=== PATIENT | female | born 1990 | race Caucasian/White ===

== ENCOUNTER 2018-01-23 13:53 | Inpatient (IN) | payer MEDICAID, OTHER ==
--- OUTSIDE RECORDS SUMMARY | 2018-01-23 14:15 | XMS REPORT | Continuity of Care Document ---
:1990 External Reference #:[id number] Author Name Laurie Pham Care Team Providers Name Role Phone Care Connections Primary Care Physician Unavailable Payers Type Date Identification Numbers Payment Provider Subscriber Policy Number: [id number] Medicaid Mal Garrison Group Name: 1 1 [address] PayID: [id number] [place] [address] Policy Number: [id number] [employer] Mal Garrison PayID: [id number] [address] [place] [address] Policy Number: [id number] Aime Garrison PayID: [id number] [address] [place] [address] Advance Directives Description No Information Available Problems Date Description Provider Status Onset: 12/28/2017 Abdominal pain Jose Kelly MD Active Onset: 12/28/2017 Left lower quadrant pain Jose Kelly MD Active Onset: 12/28/2017 Irritable bowel syndrome with diarrhea Jose Kelly MD Active Family History Description No Information Available Social History Type Date Description Comments Sex Unknown Tobacco Use Start: Unknown Light tobacco smoker (10 or fewer cigarettes/day) Smoking Status Reviewed: 12/28/17 Light tobacco smoker (10 or fewer cigarettes/day) Allergies, Adverse Reactions, Alerts Date Description Reaction Status Severity Comments 12/28/2017 Zoloft Active 12/28/2017 Latex Hives, Itching Active Moderate 12/28/2017 Banana, [place], [place], [place], Active Kiwi, [place] 12/28/2017 Kiwi, [place] Active Medications Medication Date Status Form Strength Qnty SIG Indications Ordering Provider Flomax 12/28 Active Capsules 0.4mg 30cap 1 by mouth R10.30 s every day MD Robin Prochlorperazine Active Tablets 5mg 1 by mouth Unknown Maleate /0000 three times a day as needed Hyoscyamine Active Tablets 0.125mg one by Unknown Sulfate /0000 mouth every 4 hours as needed for intestinal cramping Ibuprofen Active Tablets 400mg by mouth Unknown /0000 every 4 to 6 hours as needed Immunizations Description No Information Available Vital Signs Date Vital Result Comment 12/28/2017 9:16am Height 67 inches 5'7" Weight 340.00 lb Heart Rate 76 /min BP Systolic 118 mmHg BP Diastolic 74 mmHg Respiratory Rate 16 /min Body Temperature 98.0 F Pain Level 4 abd O2 % BldC Oximetry 98 % BMI (Body Mass Index) 53.2 kg/m2 Results Description No Information Available Procedures Date Code Description Status 06/12/2013 24083 EKG, Interpretation Only Completed Encounters Description No Information Available Plan of Treatment Future Appointment(s):01/30/2018 2:00 pm - Jose Kelly MD at [facility]12/28/2017 - Jose Kelly MDK58.0 Irritable bowel syndrome with diarrheaComments:Please call GI to schedule EGD/colonoscopyContinue hyoscyamine and ghixrzvcyxhoqamvW01.32 Left lower quadrant painComments:[facility] with [facility] for [facility]necological exam.R10.30 Lower abdominal pain, unspecifiedNew Medication:Flomax 0.4 mg - 1 by mouth every day
[2018-01-23] MEDS ORDERED: Nicotine Inhaler* 10 MG AMP INH PRN ×2 (14:17→23:57)
--- NOTE | 2018-01-23 14:52 | ED ---
Psychiatric Complaint - HPI Summary HPI Summary: This pt is a 27 y/o female, accompanied by her father, presenting to [facility] for increased depression and feeling "numb." Pt reports she has hx of depression, anxiety, PTSD. Pt saw her therapist today and told her she was not feeling well and "kind of blah" for about 1 month now. Pt states she wants to stay in bed and sleep all day. She is not finding edna in her hobbies. Additionally pt has not been sleeping well, has not slept in 3 days. Pt has been eating and drinking well. Denies any recent stressors for her symptoms. Denies SI or HI thoughts/plan. Pt notes abdominal cramping for about 2 months now that feel like "guts are knotted up" and now has moved to the left side and to her back. She was in the ED for this and had a CT done that showed arthritis. Pt is scheduled to have a colonoscopy and endoscopy. Denies alcohol and drug use. LMP: has IUD. - History Of Current Complaint Chief Complaint: EDMentalHealth Time Seen by Provider: 01/23/18 14:15 Hx Obtained From: Patient Onset/Duration: Lasting Days, Still Present Timing: Days Severity Currently: Moderate Character: Depressed Aggravating Factor(s): Nothing Alleviating Factor(s): Nothing Associated Signs And Symptoms: Positive: Sleep Disturbance Related History: Positive For: Prior Psychiatric Issues Has Suicidal: Denies: Thoughts, With A Plan Has Homicidal: Denies: Thoughts, With A Plan - Allergies/Home Medications Allergies/Adverse Reactions: Allergies Allergy/AdvReac Type Severity Reaction Status Date / Time MS Gluten Meal [Gluten Meal] Allergy Unknown Verified 07/18/15 13:41 Reaction Details MS Latex [Latex] Allergy Itching Verified 07/18/15 13:41 peanuts Allergy scratchy Uncoded 07/18/15 13:41 throat Home Medications: Home Medications Hyoscyamine TAB* [Anaspaz 0.125 MG TAB*] 0.125 mg PO Q4HR PRN 01/23/18 [History Confirmed 01/23/18] Ibuprofen TAB* [Motrin TAB* 400 MG] 400 mg PO .Q4-6H PRN 01/23/18 [History Confirmed 01/23/18] Prochlorperazine TAB* [Compazine Tab*] 5 mg PO TID PRN 01/23/18 [History Confirmed 01/23/18] PMH/Surg Hx/FS Hx/Imm Hx Endocrine/Hematology History: Denies: Hx Anticoagulant Therapy, Hx Diabetes, Hx Thyroid Disease Cardiovascular History: Denies: Hx Congestive Heart Failure, Hx Hypertension, Hx Pacemaker/ICD Respiratory History: Denies: Hx Asthma, Hx Chronic Obstructive Pulmonary Disease (COPD) History: Denies: Hx Renal Disease Sensory History: Reports: Hx Contacts or Glasses Opthamlomology History: Reports: Hx Contacts or Glasses Neurological History: Reports: Hx Migraine Denies: Hx Dementia, Hx Seizures Psychiatric History: Reports: Hx Anxiety, Hx Depression, Hx Post Traumatic Stress Disorder Denies: Hx Substance Abuse - Immunization History Date of Tetanus Vaccine: UTD Infectious Disease History: No Infectious Disease History: Denies: Hx Hepatitis, Hx Human Immunodeficiency Virus (HIV), Traveled Outside the [place] in Last 30 Days - Family History Family History: Mother with hx of colon CA - Social History Alcohol Use: None Substance Use Type: Reports: None Smoking Status (MU): Former Smoker Review of Systems Constitutional: Other - POSITIVE: sleep disturbance Negative: Fever, Chills Negative: Erythema Negative: Sore Throat Negative: Chest Pain Negative: Shortness Of Breath, Cough Negative: Abdominal Pain, Vomiting, Nausea Negative: dysuria, hematuria Negative: Myalgia, Edema Negative: Rash Neurological: Other - NEGATIVE: dizziness Psychological: Other - POSITIVE: feeling numb Positive: Depressed. Negative: Other - SI or HI All Other Systems Reviewed And Are Negative: Yes Physical Exam - Summary Physical Exam Summary: Constitutional: Well-developed, Well-nourished, Alert. (-) Distressed Skin: Warm, Dry HENT: Normocephalic; Atraumatic Eyes: Conjunctiva normal Neck: Musculoskeletal ROM normal neck. (-) JVD, (-) Stridor, (-) Tracheal deviation Cardio: Rhythm regular, rate normal, Heart sounds normal; Intact distal pulses; The pedal pulses are 2+ and symmetric. Radial pulses are 2+ and symmetric. (-) Murmur Pulmonary/Chest wall: Effort normal. (-) Respiratory distress, (-) Wheezes, (-) Rales Abd: Soft, (-) Tenderness, (-) Distension, (-) Guarding, (-) Rebound Musculoskeletal: (-) Edema Lymph: (-) Cervical adenopathy Neuro: Alert, Oriented x3 Psych: Mood and affect Normal Triage Information Reviewed: Yes Vital Signs On Initial Exam: Initial Vitals Temp Pulse Resp BP Pulse Ox 97.5 F 91 20 134/76 96 01/23/18 14:04 01/23/18 14:04 01/23/18 14:04 01/23/18 14:04 01/23/18 14:04 Vital Signs Reviewed: Yes Diagnostics - Vital Signs Vital Signs Temp Pulse Resp BP Pulse Ox 01/23/18 14:04 97.5 F 91 20 134/76 96 - Laboratory Result Diagrams: 01/23/18 14:46 01/23/18 14:46 Lab Statement: Any lab studies that have been ordered have been reviewed, and results considered in the medical decision making process. Re-Evaluation - Re-Evaluation First Eval Re-Evaluation Time: 15:12 Comment: Pt is medically cleared. Course/Dx - Course Assessment/Plan: Pt is a 27 y/o female who presents to the ED for increased depression and feeling "numb." Pt reports she has hx of depression, anxiety, PTSD. Pt saw her therapist today and told her she was not feeling well and " kind of blah" for about 1 month now. Pt states she wants to stay in bed and sleep all day. She is not finding edna in her hobbies. Additionally pt has not been sleeping well, has not slept in 3 days. Pt has been eating and drinking well. Denies any recent stressors for her symptoms. Denies SI or HI thoughts/ plan. Pt is medically cleared at 15:12. In the ED course the pt was given nicotine and nicotine inhaler. Pt is waiting for a mental health evaluation. MHE is still pending at this time. Pt will be signed out to Dr. Olivo, pending disposition, awaiting MHE. - Differential Dx/Clinical Impression Provider Diagnosis: Depression Discharge - Sign-Out/Discharge Documenting (check all that apply): Sign-Out Patient Signing out patient TO: Matt Olivo - pending MHE and dispo - Discharge Plan Condition: Stable Referrals: No Primary Care Phys,NOPCP [Primary Care Provider] - - Attestation Statements Document Initiated by Scribe: Yes Documenting Scribe: Corina Ba Provider For Whom Scribe is Documenting (Include Credential): Darion Farah MD Scribe Attestation: Corina Moya, scribed for Darion Farah MD on 01/23/18 at 1823. Status of Scribe Document: Ready
[2018-01-23 14:58] LABS: ABS Basophils 0.1 10^3/ul (0-0.2); ABS Eosinophils 0.1 10^3/ul (0-0.6); ABS Lymphocytes 2.5 10^3/ul (1.0-4.8); ABS Monocytes 0.6 10^3/ul (0-0.8); ABS Neutrophils 6.7 10^3/ul (1.5-7.7); ABS Nucleated RBC 0 10^3/ul; Eosinophil % 0.6 %; Hematocrit 42 % (35-47); Hemoglobin 14.3 g/dl (12.0-16.0); Lymphocyte % 25.2 %; Mean Corpuscular HGB Conc 34 g/dl (31-36); Mean Corpuscular Hemoglobin 30 pg (27-31); Mean Corpuscular Volume 87 fL (80-97); Mean Platelet Volume 6.9 fL (7.4-10.4); Nucleated Red Blood Cells % 0.1; Platelet Count 328 10^3/ul (150-450); Red Blood Count 4.82 10^6/ul (4.00-5.40); Red Cell Distribution Width 14 % (10.5-15); White Blood Count 9.9 10^3/ul (3.5-10.8)
[2018-01-23] MEDS ORDERED: Mouth Piece, Nicotine* 1 EACH CARTRIDGE INH ONE (15:00)
[2018-01-23 15:38] LABS: EGFR Non-African American 93.4 (>60)
[2018-01-23 15:59] LABS: Urine Appearance Cloudy; Urine Blood Negative (Negative); Urine Color Yellow; Urine Ketones Negative (Negative); Urine Protein Negative (Negative); Urine Red Blood Cell Absent (Absent); Urine Specific Gravity 1.018 (1.010-1.030); Urine Urobilinogen Negative (Negative); Urine White Blood Cell Trace(0-5/hpf) (Absent)
--- NOTE | 2018-01-23 19:50 | ED ---
Progress - Progress Note Progress Note: 1939 - Pt will be admitted to [facility] by Dr. Fernandez with a diagnosis of depression. Re-Evaluation - Re-Evaluation First Eval Re-Evaluation Time: 15:12 Comment: Pt is medically cleared. Course/Dx - Diagnoses Provider Diagnoses: Depression Discharge - Sign-Out/Discharge Documenting (check all that apply): Patient Departure - admit - Discharge Plan Condition: Stable Disposition: ADMITTED TO [facility] Referrals: No Primary Care Phys,NOPCP [Primary Care Provider] - - Billing Disposition and Condition Condition: STABLE Disposition: Admitted to [facility] - Attestation Statements Document Initiated by Scribe: Yes Documenting Scribe: Chapis Avila Provider For Whom Pablo is Documenting (Include Credential): Matt Olivo MD. Scribe Attestation: Chapis Moya, vinitaed for Matt Olivo MD. on 01/23/18 at 1953. Scribe Documentation Reviewed: Yes Provider Attestation: The documentation as recorded by the Chapis cramer accurately reflects the service I personally performed and the decisions made by Nesha oneil MD. Status of Scribe Document: Viewed
[2018-01-23] MEDS ORDERED: Mouth Piece, Nicotine* 1 EACH CARTRIDGE INH SCH (23:57)
[2018-01-23] MEDS ORDERED: Acetaminophen TAB* 325 MG PO PRN (23:57)
[2018-01-23] MEDS ORDERED: Al Hydrox/Mg Hydrox/Simet LIQ* 30 ML UDC PO PRN (23:57)
[2018-01-24] MEDS ORDERED: Mouth Piece, Nicotine* 1 EACH CARTRIDGE ONE (08:49)
[2018-01-24] MEDS: Vitamin THERAPEUTIC TAB PO SCH (08:49)
--- NOTE | 2018-01-24 13:33 | HP ---
H&P (Free Text) History and Physical: JUSTIFICATION FOR ADMISSION: Patient presented to emergency room with suicidal ideation and plan, worsening depression and irritability. She requires inpatient psychiatric admission in order to provide treatment and stabilization as she is a danger to herself. CHIEF COMPLAINT: "I have not been feeling good and was having suicidal thoughts with multiple random plans HISTORY OF THE PRESENT ILLNESS: Patient is a 27 y/o female, single, living with roommates, employed at [employer] , with history of Depressive disorder. Patient was admitted to inpatient unit for worsening of depression, anhedonia, not eating and not sleeping, lost about 20-30 lbs in less than a month unintentionally, overwhelmed with psychosocial stress including , work, relationship, limited support, memories of mother that passed from colon cancer three years ago, breakup beginning of this year. Patient was having suicidal thoughts and multiple random plans but thinking about family, her cat. Patient has been non-compliant with her treatment for some and reportedly in the past followed up at [facility] and was taking Effexor. Patient reports that 75 mg PO QAM was working fine for her until it was increased which she did not like and s topped all at once. Patient reports no manic symptoms of other than irritability and days of decrease need for sleep. Patient reports no psychotic symptoms of delusion but random hallucination of her name being called. Patient continues to have passive suicidal ideation but no homicidal ideation on the unit. Patient continued to exhibit behavior that is in control and safe on all checks and acceptive of treatment. PAST PSYCHIATRIC HISTORY: Patient has history of no inpatient psychiatric hospitalization. Patient has history of outpatient psychiatric treatment for her depression at [facility] both for therapy and medication management but recently went non-compliant with medications. Patients medications trial included Prozac, Effexor and two other antidepressant but reports doing better on Effexor XR 75 mg PO QAM until it was increased to 150 mg which was ineffective and patient stopped it altogether. Patient has been followed up by ACT team in the past. Patient has been in inpatient or outpatient drug treatment. Patient has history of suicidal thoughts and plans beginning at age 15 after an argument with her mother, second was around age 21 another was round 24 when mother was diagnosed with colon cancer and now but never attempted or acted through with these plans. Patient has history of no homicidal threats, intent or attempt. Patient has history of agitated behavior when decompensates and destroyed ornaments recently. No access to firearm reported. SUBSTANCE ABUSE HISTORY: Patient denied any substance or alcohol abuse. PAST MEDICAL HISTORY: No active medical problems ALLERGIES: gluten, latex, peanuts FAMILY PSYCHIATRIC HISTORY: Patient has family history of bipolar disorder in her mother. Patient has history of alcohol abuse in family and her grandfather from alcoholism. No reported suicide in the family. FAMILY/PSYCHOSOCIAL HISTORY: Patient currently lives with roommates. Patient is not and last romantic relationship ended in February of this year. Patient endorsed that she also thought of not attempting suicide because that could be a win for my ex- boyfriend. Patient has no children. Patient education level is GED. Patient attended school till eight grade but left school due to bullying and felt that teacher were not supportive as well. Patient ended up getting home schooled till 10th grade and then patient just completed GED. Patient was raised by her mother and step father. Patient biological father left when patient was very young following divorce. Patient reported having erratic relationship with her throughout until she 3 years ago. Patient find that day to be very depressing to this day. Patient support system includes her step father, her few siblings that she is closed to. REVIEW OF SYSTEMS: Patients review of symptoms was negative for any physical complaint. Vitals stable, Labs reviewed lipid profile suggestive of increased LDL 110 and low HDL 37. Patients ED physical exam was reviewed which is grossly normal with no active medical problem. Physical Exam Summary: Constitutional: Well-developed, Well-nourished, Alert. (-) Distressed Skin: Warm, Dry HENT: Normocephalic; Atraumatic Eyes: Conjunctiva normal Neck: Musculoskeletal ROM normal neck. (-) JVD, (-) Stridor, (-) Tracheal deviation Cardio: Rhythm regular, rate normal, Heart sounds normal; Intact distal pulses; The pedal pulses are 2+ and symmetric. Radial pulses are 2+ and symmetric. (-) Murmur Pulmonary/Chest wall: Effort normal. (-) Respiratory distress, (-) Wheezes, (-) Rales Abd: Soft, (-) Tenderness, (-) Distension, (-) Guarding, (-) Rebound Musculoskeletal: (-) Edema Lymph: (-) Cervical adenopathy Neuro: Alert, Oriented x3 Psych: Mood and affect Normal MENTAL STATUS EXAMINATION: Appearance: Patient appear stated, age, overweight, making poor and intermittent short eye contact, casually dressed, very short hair, wearing spectacles. Behavior: cooperative Gait: normal Abnormal motor activity: none Speech: normal tone and volume, normal rate and rhythm Mood:depressed Affect: depressed, crying spells through out interview Thought process: coherent Thought Content: Suicidal/Homicidal ideation: passive si, no intent or plan Delusions: none Obsessions: none Phobia: none Perceptual disturbance: none Attention: fair Orientation: fair Concentration: fair Memory: fair Insight: fair Judgment: fair Impulse control: fair IMPRESSION: Patient with history of Major Depression and suicidal thoughts and plan. Patient currently admitted due to worsening of depression and suicidal thoughts with multiple random plans in context of overwhelming psychosocial stressor. Patient has also struggled with compliance and went off her antidepressant few months ago. Patient is a danger to self if discharged hence will be stabilized on inpatient unit with medication adjustments and therapy. DIAGNOSIS: Major Depressive Disorder Prov: Bipolar Disorder unspecified PLAN: Admit to U on Q 15 min observation. Patient is full code. Patient is on voluntary admission status Integrate patient into the milieu Social work consult for therapy and discharge planning Will hold family meeting with parents to increase Data base, if possible. Patient gave informed consent to start the following medications: Patient was started on Effexor XR 37.5 mg POQAM with plan to increase to 75 mg POQAM. Patient was started on Benadryl PRN for anxiety and sleep disturbance. Will continue to monitor and f/u for improvement and side effects. Piyush Blake MD Attending Psychiatrist
[2018-01-24] MEDS: Venlafaxine EXT RELEASE CAP* 37.5 MG PO SCH (16:23)
[2018-01-24] MEDS: Nicotine GUM* 2 MG PO PRN (18:35)
[2018-01-24] MEDS ORDERED: Ondansetron ODT TAB* 4 MG ONE (23:44)
[2018-01-24] MEDS: Ondansetron TAB* 4 MG PO PRN (23:45)
[2018-01-25] MEDS: Vitamin THERAPEUTIC TAB PO SCH (08:05)
[2018-01-25] MEDS: Venlafaxine EXT RELEASE CAP* 37.5 MG PO SCH (08:06)
[2018-01-25] MEDS: Ondansetron TAB* 4 MG PO PRN ×3 (11:06→23:50)
--- NOTE | 2018-01-25 15:09 | PN ---
Subjective - Subjective Date of Service: 01/25/18 Service Type: 59195 Hosp care 15 min low complexity Subjective: Patient was seen by self, discussed with treatment team, chart was reviewed. Patient has been compliant with her medications, reported nausea as a side effects. Patient reports continued depression and suicidal ideation with isolation and secretiveness in her symptoms. Patient was more out of his room. Patient sleeping has been disturbed last night with early insomnia. Patient eating has been fair. Patient has been cooperative with staff but is showing limited involvement in groups. Patient behavior has been in control and is safe on all checks. Patient mood was dysphoric and worries about her current psychosocial stresses. Patient has been reporting no homicidal ideation. No psychotic symptoms of delusions or hallucinations. Objective - Appearance Appearance: Obese Dysmorphic Features: No Hygiene: Normal Grooming: Fairly Well Kept - Behavior Psychomotor Activities: Normal Exhibits Abnormal Movement: No - Attitude and Relatedness Attitude and Relatedness: Cooperative Eye Contact: Fair - Speech Quality: Unpressured Latencies: Normal Quantity: Appropriate - Mood Patient's Decription of Mood: "Sad" - Affect Observed Affect: Depressed Affect Consistent with: Dysphoria - Thought Process Patient's Thought Process: Coherent Thought Content: Yes Passive Wish, No Suicidal Planning, No Homicidal Ideation, No Paranoid Ideation - Sensorium Experiencing Hallucinations: No, Sensorium is Clear Type of Hallucinations: Visual: No, Auditory: No, Command: No - Level of Consciousness Level of Consciousness: Alert Orientation: Yes Intact, Yes Orientated to Time, Yes Orientated to Place, Yes Orientated to Person - Impulse Control Impulse Control: Intact - Insight and Judgement Insight and Judgement: Fair - Group Participation Particating in Group Activities: Yes - Medication Management Medication Management Adherence: Yes Assessment - Assessment Merits Inpatient Hospitalization: For Immediate Safety, For Stabilization, For Discharge Planning Inpatient DSM-V Dx: F33.9 Clinical Impression: Patient with history of Major Depression and suicidal thoughts and plan. Patient currently admitted due to worsening of depression and suicidal thoughts with multiple random plans in context of overwhelming psychosocial stressor. Patient has also struggled with compliance and went off her antidepressant few months ago. Patient is a danger to self if discharged hence will be stabilized on inpatient unit with medication adjustments and therapy. MHU: Problem List - Patient Problems (1) Major depressive disorder Current Visit: Yes Status: Acute Code(s): F32.9 - MAJOR DEPRESSIVE DISORDER , SINGLE EPISODE, UNSPECIFIED SNOMED Code(s): 132395317 Plan - Plan Treatment Plan: Name: BRADLY RAMOS Birthdate: 1990 [id number] - Patient continues to be hospitalized due to recent suicidal thoughts with plan , depression and anxiety. - Patient's medications were conitnued with Effexor XR 75 mg PO QAM and Benadryl as needed for anxiety. - Patient will be monitored for improvement and side effects. Risk and benefits were discussed. - Patient was encouraged to continue his participation in the milieu, group and individual therapy. Medications: Current Medications Acetaminophen (Tylenol Tab*) 650 mg PO Q4H PRN PRN Reason: PAIN or TEMP > 101 F Al Hydrox/Mg Hydrox/Simethicone (Maalox Plus*) 30 ml PO Q4H PRN PRN Reason: INDIGESTION Device (Nicotine Mouth Piece*) 1 each INH .CARTRIDGE JANE Diphenhydramine HCl (Benadryl Po*) 50 mg PO Q6H PRN PRN Reason: ANXIETY Multivitamins (Theragran Tab*) 1 tab PO DAILY JANE Last Admin: 01/25/18 08:05 Dose: 1 tab Nicotine (Nicotine Inhaler*) 10 mg INH Q2H PRN PRN Reason: CRAVING Last Admin: 01/24/18 08:50 Dose: 10 mg Nicotine Polacrilex (Nicotine Gum*) 2 mg PO Q2H PRN PRN Reason: CRAVING Last Admin: 01/24/18 18:35 Dose: 2 mg Ondansetron HCl (Zofran Tab*) 2 mg PO Q4H PRN PRN Reason: NAUSEA Last Admin: 01/25/18 11:06 Dose: 2 mg Venlafaxine HCl (Effexor Xr Cap*) 75 mg PO DAILY [facility]
[2018-01-26] MEDS: diPHENhydraMINE PO* 50 MG PO PRN (00:20)
[2018-01-26] MEDS: Vitamin THERAPEUTIC TAB PO SCH (11:22)
[2018-01-26] MEDS: Venlafaxine EXT RELEASE CAP* 75 MG PO SCH (11:22)
--- NOTE | 2018-01-26 12:22 | PN ---
Subjective - Subjective Date of Service: 01/26/18 Service Type: [id number] Hosp care 15 min low complexity Subjective: Patient was seen by self, discussed with treatment team, chart was reviewed. Patient has been compliant with her medications, reported continued nausea as a side effects and using Zofran. Patient also reported feeling body aches and back ache and requesting Ibuprofen as it helps vs Tylenol. Patient reports continued depression and passive suicidal ideation, less crying spell, coming out of her room more than before. Patient sleeping has been better last night with Benadryl. Patient eating has been fair. Patient has been cooperative with staff but is showing limited involvement in groups but was encouraged to attend more. Patient stepfather came to see patient on the unit and he is reportedly a therapist and [facility].Patient behavior has been in control and is safe on all checks. Patient mood was dysphoric and continues to worry about her current psychosocial stresses. Patient has been reporting no homicidal ideation. No psychotic symptoms of delusions or hallucinations. Objective - Appearance Appearance: Obese Dysmorphic Features: No Hygiene: Normal Grooming: Fairly Well Kept - Behavior Psychomotor Activities: Normal Exhibits Abnormal Movement: No - Attitude and Relatedness Attitude and Relatedness: Cooperative Eye Contact: Poor - Speech Quality: Unpressured Latencies: Normal Quantity: Appropriate - Mood Patient's Decription of Mood: "Sad" - Affect Observed Affect: Depressed Affect Consistent with: Dysphoria - Thought Process Patient's Thought Process: Coherent Thought Content: Yes Passive Wish, No Suicidal Planning, No Homicidal Ideation, No Paranoid Ideation - Sensorium Experiencing Hallucinations: No, Sensorium is Clear Type of Hallucinations: Visual: No, Auditory: No, Command: No - Level of Consciousness Level of Consciousness: Alert Orientation: Yes Intact, Yes Orientated to Time, Yes Orientated to Place, Yes Orientated to Person - Impulse Control Impulse Control: Intact - Insight and Judgement Insight and Judgement: Fair - Group Participation Particating in Group Activities: Yes - Medication Management Medication Management Adherence: Yes Assessment - Assessment Merits Inpatient Hospitalization: For Immediate Safety, For Stabilization, For Discharge Planning Inpatient DSM-V Dx: F33.9 Clinical Impression: Patient with history of Major Depression and suicidal thoughts and plan. Patient currently admitted due to worsening of depression and suicidal thoughts with multiple random plans in context of overwhelming psychosocial stressor. Patient has also struggled with compliance and went off her antidepressant few months ago. Patient is a danger to self if discharged hence will be stabilized on inpatient unit with medication adjustments and therapy. MHU: Problem List - Patient Problems (1) Major depressive disorder Current Visit: Yes Status: Acute Code(s): F32.9 - MAJOR DEPRESSIVE DISORDER , SINGLE EPISODE, UNSPECIFIED SNOMED Code(s): 157053922 Plan - Plan Treatment Plan: Name: BRADLY RAMOS Birthdate: 1990 [id number] - Patient continues to be hospitalized due to recent suicidal thoughts with plan , depression and anxiety. - Patient's medications were continued with Effexor XR 37.5 mg PO QAM and Benadryl as needed for anxiety/sleep. Patient also consuming Zofran for nausea but no reported vomiting episodes. - Patient will be monitored for improvement and side effects. Risk and benefits were discussed. - Patient was encouraged to continue his participation in the milieu, group and individual therapy. Medications: Current Medications Acetaminophen (Tylenol Tab*) 650 mg PO Q4H PRN PRN Reason: PAIN or TEMP > 101 F Last Admin: 01/25/18 19:59 Dose: 650 mg Al Hydrox/Mg Hydrox/Simethicone (Maalox Plus*) 30 ml PO Q4H PRN PRN Reason: INDIGESTION Device (Nicotine Mouth Piece*) 1 each INH .CARTRIDGE JANE Diphenhydramine HCl (Benadryl Po*) 50 mg PO Q6H PRN PRN Reason: ANXIETY Last Admin: 01/26/18 00:20 Dose: 50 mg Multivitamins (Theragran Tab*) 1 tab PO DAILY [facility] Last Admin: 01/26/18 11:22 Dose: 1 tab Nicotine (Nicotine Inhaler*) 10 mg INH Q2H PRN PRN Reason: CRAVING Last Admin: 01/24/18 08:50 Dose: 10 mg Nicotine Polacrilex (Nicotine Gum*) 2 mg PO Q2H PRN PRN Reason: CRAVING Last Admin: 01/24/18 18:35 Dose: 2 mg Ondansetron HCl (Zofran Tab*) 2 mg PO Q4H PRN PRN Reason: NAUSEA Last Admin: 01/25/18 23:50 Dose: 2 mg Venlafaxine HCl (Effexor Xr Cap*) 75 mg PO DAILY [facility] Last Admin: 01/26/18 11:22 Dose: 75 mg
[2018-01-26] MEDS: Ibuprofen TAB* 600 MG PO PRN (13:46)
[2018-01-27] MEDS: diPHENhydraMINE PO* 50 MG PO PRN ×2 (00:02→22:34)
[2018-01-27] MEDS: Vitamin THERAPEUTIC TAB PO SCH (08:16)
[2018-01-27] MEDS: Venlafaxine EXT RELEASE CAP* 75 MG PO SCH (08:16)
[2018-01-27] MEDS: Ondansetron TAB* 4 MG PO PRN (20:20)
[2018-01-28] MEDS: Venlafaxine EXT RELEASE CAP* 75 MG PO SCH (11:28)
[2018-01-28] MEDS: Vitamin THERAPEUTIC TAB PO SCH (11:29)
--- NOTE | 2018-01-28 13:47 | PN ---
Subjective - Subjective Date of Service: 01/28/18 Service Type: [id number] Hosp care 15 min low complexity Subjective: Mal is seen in weekend coverage for Dr. Blake. She is bitterly complaining of dyspepsia and "mental fuzziness" from venlafaxine and claims that her stomach feels like "somebody is punching me in the guts." She denies active SI but does endorse feeling "apathetic" about life, "like I wouldn't mind it if a bus ran me over." Her affective brightens noticeably when she talks about her [employer] T-shirt. Objective - Appearance Appearance: Obese Dysmorphic Features: No Hygiene: Normal Grooming: Well Kept - Behavior Psychomotor Activities: Normal Exhibits Abnormal Movement: No - Attitude and Relatedness Attitude and Relatedness: Appropriate Eye Contact: Good - Speech Quality: Unpressured Latencies: Normal Quantity: Appropriate - Mood Patient's Decription of Mood: "Sad" - Affect Observed Affect: Fair Affect Consistent with: Euthymia - Thought Process Patient's Thought Process: Coherent Thought Content: Yes Passive Wish, No Suicidal Planning, No Homicidal Ideation, No Paranoid Ideation - Sensorium Experiencing Hallucinations: No, Sensorium is Clear Type of Hallucinations: Visual: No, Auditory: No, Command: No - Level of Consciousness Level of Consciousness: Alert Orientation: Yes Intact, Yes Orientated to Time, Yes Orientated to Place, Yes Orientated to Person - Impulse Control Impulse Control: Tenuous - Insight and Judgement Insight and Judgement: Fair - Group Participation Particating in Group Activities: Yes - Medication Management Medication Management Adherence: Yes Assessment - Assessment Merits Inpatient Hospitalization: For Immediate Safety, For Stabilization Inpatient DSM-V Dx: F33.9 Clinical Impression: Patient with history of Major Depression and suicidal thoughts and plan. Patient currently admitted due to worsening of depression and suicidal thoughts with multiple random plans in context of overwhelming psychosocial stressor. Patient has also struggled with compliance and went off her antidepressant few months ago. Patient is a danger to self if discharged hence will be stabilized on inpatient unit with medication adjustments and therapy. Plan - Plan Treatment Plan: Name: MAL RAMOS Birthdate: 1990 [id number] - Patient continues to be hospitalized due to recent suicidal thoughts with plan , depression and anxiety. - Patient's medications were continued with Effexor XR 37.5 mg PO QAM and Benadryl as needed for anxiety/sleep. Patient also consuming Zofran for nausea but no reported vomiting episodes. - Patient will be monitored for improvement and side effects. Risk and benefits were discussed. - Patient was encouraged to continue his participation in the milieu, group and individual therapy. Continued Medication Management: Start Medication Medications: Current Medications Al Hydrox/Mg Hydrox/Simethicone (Maalox Plus*) 30 ml PO Q4H PRN PRN Reason: INDIGESTION Device (Nicotine Mouth Piece*) 1 each INH .CARTRIDGE JANE Diphenhydramine HCl (Benadryl Po*) 50 mg PO Q6H PRN PRN Reason: ANXIETY Last Admin: 01/27/18 22:34 Dose: 50 mg Ibuprofen (Motrin Tab*) 600 mg PO Q6H PRN PRN Reason: PAIN Last Admin: 01/26/18 13:46 Dose: 600 mg Multivitamins (Theragran Tab*) 1 tab PO DAILY [facility] Last Admin: 01/28/18 11:29 Dose: 1 tab Nicotine (Nicotine Inhaler*) 10 mg INH Q2H PRN PRN Reason: CRAVING Last Admin: 01/24/18 08:50 Dose: 10 mg Nicotine Polacrilex (Nicotine Gum*) 2 mg PO Q2H PRN PRN Reason: CRAVING Last Admin: 01/24/18 18:35 Dose: 2 mg Ondansetron HCl (Zofran Tab*) 2 mg PO Q4H PRN PRN Reason: NAUSEA Last Admin: 01/27/18 20:20 Dose: 2 mg Venlafaxine HCl (Effexor Xr Cap*) 75 mg PO DAILY [facility] Last Admin: 01/28/18 11:28 Dose: 75 mg - Discharge Plan Discharge Plan: Inpatient Hospitalization
[2018-01-28] MEDS: Ibuprofen TAB* 600 MG PO PRN (20:36)
[2018-01-29 09:02] VITALS: BP 144/83
[2018-01-29] MEDS: Vitamin THERAPEUTIC TAB PO SCH (09:18)
[2018-01-29] MEDS: Venlafaxine EXT RELEASE CAP* 75 MG PO SCH ×2 (09:18→12:28)
[2018-01-29] MEDS: Nicotine GUM* 2 MG PO PRN (10:45)
[2018-01-29] MEDS: Ibuprofen TAB* 600 MG PO PRN (10:45)
--- NOTE | 2018-01-29 14:37 | PN ---
Subjective - Subjective Date of Service: 01/29/18 Service Type: 30197 Hosp care 25 min moderate complexity Subjective: Patient was seen by self, discussed with treatment team, chart was reviewed. Patient was hesitant about taking Effexor XR but was again educated about GI side effects and reported no vomiting and improvement in symptoms today and after education took her Effexor dose. Patient reports improvement in depression and no suicidal ideation, no crying spell, coming out of her room more than before and attending groups. Patient sleeping has been fair. Patient eating has been fair. Patient reports that she has a GI appointment at the hospital tomorrow afternoon. Patient has been cooperative with staff and following redirections. Patient was upset at her stepfather yesterday as she told other family members about her hospitalization. But later patient recuperated was able to process her thinking positively and accepted his effort to help her. Patient mood was better and less worry about her work and wants to work with social work professor to help with housing and financial situation with food stamp. Patient has been reporting no homicidal ideation. No psychotic symptoms of delusions or hallucinations. Patient also reported worry about ovarian cyst and was given findings of recent CT scan done a month ago which was suggestive of normal ovary. Objective - Appearance Appearance: Obese Dysmorphic Features: No Hygiene: Normal Grooming: Fairly Well Kept - Behavior Psychomotor Activities: Normal Exhibits Abnormal Movement: No - Attitude and Relatedness Attitude and Relatedness: Cooperative Eye Contact: Fair - Speech Quality: Unpressured Latencies: Normal Quantity: Appropriate - Mood Patient's Decription of Mood: "Fine" - Affect Observed Affect: Fair Affect Consistent with: Dysphoria - less - Thought Process Patient's Thought Process: Coherent Thought Content: No Passive Wish, No Suicidal Planning, No Homicidal Ideation, No Paranoid Ideation - Sensorium Experiencing Hallucinations: No, Sensorium is Clear Type of Hallucinations: Visual: No, Auditory: No, Command: No - Level of Consciousness Level of Consciousness: Alert Orientation: Yes Intact, Yes Orientated to Time, Yes Orientated to Place, Yes Orientated to Person - Impulse Control Impulse Control: Intact - Insight and Judgement Insight and Judgement: Fair - Group Participation Particating in Group Activities: Yes - Medication Management Medication Management Adherence: Yes Assessment - Assessment Merits Inpatient Hospitalization: For Immediate Safety, For Stabilization, For Discharge Planning Inpatient DSM-V Dx: F33.9 Clinical Impression: Patient with history of Major Depression and suicidal thoughts and plan. Patient currently admitted due to worsening of depression and suicidal thoughts with multiple random plans in context of overwhelming psychosocial stressor. Patient has also struggled with compliance and went off her antidepressant few months ago. Patient is a danger to self if discharged hence will be stabilized on inpatient unit with medication adjustments and therapy. MHU: Problem List - Patient Problems (1) Major depressive disorder Current Visit: Yes Status: Acute Code(s): F32.9 - MAJOR DEPRESSIVE DISORDER , SINGLE EPISODE, UNSPECIFIED SNOMED Code(s): 622248005 Plan - Plan Treatment Plan: Name: BRADLY RAMOS Birthdate: 1990 [id number] - Patient continues to be hospitalized due to recent suicidal thoughts with plan , depression and anxiety. - Patient's medications were continued with Effexor XR 75 mg PO QAM and Benadryl as needed for anxiety/sleep. Patient to consume Zofran for nausea but no reported vomiting episodes. - Patient will be monitored for improvement and side effects. Risk and benefits were discussed. - Patient was encouraged to continue his participation in the milieu, group and individual therapy. Medications: Current Medications Al Hydrox/Mg Hydrox/Simethicone (Maalox Plus*) 30 ml PO Q4H PRN PRN Reason: INDIGESTION Device (Nicotine Mouth Piece*) 1 each INH .CARTRIDGE JANE Diphenhydramine HCl (Benadryl Po*) 50 mg PO Q6H PRN PRN Reason: ANXIETY Last Admin: 01/27/18 22:34 Dose: 50 mg Ibuprofen (Motrin Tab*) 600 mg PO Q6H PRN PRN Reason: PAIN Last Admin: 01/29/18 10:45 Dose: 600 mg Multivitamins (Theragran Tab*) 1 tab PO DAILY [facility] Last Admin: 01/29/18 09:18 Dose: 1 tab Nicotine (Nicotine Inhaler*) 10 mg INH Q2H PRN PRN Reason: CRAVING Last Admin: 01/24/18 08:50 Dose: 10 mg Nicotine Polacrilex (Nicotine Gum*) 2 mg PO Q2H PRN PRN Reason: CRAVING Last Admin: 01/29/18 10:45 Dose: 2 mg Ondansetron HCl (Zofran Tab*) 2 mg PO Q4H PRN PRN Reason: NAUSEA Last Admin: 01/27/18 20:20 Dose: 2 mg Venlafaxine HCl (Effexor Xr Cap*) 75 mg PO DAILY [facility]
[2018-01-29] MEDS ORDERED: Venlafaxine EXT RELEASE CAP* 75 MG PO SCH (15:00)
[2018-01-29] MEDS: diPHENhydraMINE PO* 50 MG PO PRN (21:47)
[2018-01-30] MEDS: Vitamin THERAPEUTIC TAB PO SCH (08:36)
[2018-01-30] MEDS ORDERED: Venlafaxine EXT RELEASE CAP* 75 MG PO SCH (09:00)
[2018-01-30] MEDS: Ibuprofen TAB* 600 MG PO PRN (12:24)
--- NOTE | 2018-01-30 13:23 | DS ---
Subjective - Subjective Service Types: [id number] [facility] over 30 min Discharge Date: 01/30/18 Subjective: JUSTIFICATION FOR ADMISSION: Patient presented to emergency room with suicidal ideation and plan, worsening depression and irritability. She requires inpatient psychiatric admission in order to provide treatment and stabilization as she is a danger to herself. CHIEF COMPLAINT: "I have not been feeling good and was having suicidal thoughts with multiple random plans HISTORY OF THE PRESENT ILLNESS: Patient is a 27 y/o female, single, living with roommates, employed at [employer] , with history of Depressive disorder. Patient was admitted to inpatient unit for worsening of depression, anhedonia, not eating and not sleeping, lost about 20-30 lbs in less than a month unintentionally, overwhelmed with psychosocial stress including , work, relationship, limited support, memories of mother that passed from colon cancer three years ago, breakup beginning of this year. Patient was having suicidal thoughts and multiple random plans but thinking about family, her cat. Patient has been non-compliant with her treatment for some and reportedly in the past followed up at [facility] and was taking Effexor. Patient reports that 75 mg PO QAM was working fine for her until it was increased which she did not like and s topped all at once. Patient reports no manic symptoms of other than irritability and days of decrease need for sleep. Patient reports no psychotic symptoms of delusion but random hallucination of her name being called. Patient continues to have passive suicidal ideation but no homicidal ideation on the unit. Patient continued to exhibit behavior that is in control and safe on all checks and acceptive of treatment. PAST PSYCHIATRIC HISTORY: Patient has history of no inpatient psychiatric hospitalization. Patient has history of outpatient psychiatric treatment for her depression at [facility] both for therapy and medication management but recently went non-compliant with medications. Patients medications trial included Prozac, Effexor and two other antidepressant but reports doing better on Effexor XR 75 mg PO QAM until it was increased to 150 mg which was ineffective and patient stopped it altogether. Patient has been followed up by ACT team in the past. Patient has been in inpatient or outpatient drug treatment. Patient has history of suicidal thoughts and plans beginning at age 15 after an argument with her mother, second was around age 21 another was round 24 when mother was diagnosed with colon cancer and now but never attempted or acted through with these plans. Patient has history of no homicidal threats, intent or attempt. Patient has history of agitated behavior when decompensates and destroyed ornaments recently. No access to firearm reported. SUBSTANCE ABUSE HISTORY: Patient denied any substance or alcohol abuse. PAST MEDICAL HISTORY: No active medical problems ALLERGIES: gluten, latex, peanuts FAMILY PSYCHIATRIC HISTORY: Patient has family history of bipolar disorder in her mother. Patient has history of alcohol abuse in family and her grandfather from alcoholism. No reported suicide in the family. FAMILY/PSYCHOSOCIAL HISTORY: Patient currently lives with roommates. Patient is not and last romantic relationship ended in February of this year. Patient endorsed that she also thought of not attempting suicide because that could be a win for my ex- boyfriend. Patient has no children. Patient education level is GED. Patient attended school till eight grade but left school due to bullying and felt that teacher were not supportive as well. Patient ended up getting home schooled till 10th grade and then patient just completed GED. Patient was raised by her mother and step father. Patient biological father left when patient was very young following divorce. Patient reported having erratic relationship with her throughout until she 3 years ago. Patient find that day to be very depressing to this day. Patient support system includes her step father, her few siblings that she is closed to. REVIEW OF SYSTEMS: Patients review of symptoms was negative for any physical complaint. Vitals stable, Labs reviewed lipid profile suggestive of increased LDL 110 and low HDL 37. Patients ED physical exam was reviewed which is grossly normal with no active medical problem. Physical Exam Summary: Constitutional: Well-developed, Well-nourished, Alert. (-) Distressed Skin: Warm, Dry HENT: Normocephalic; Atraumatic Eyes: Conjunctiva normal Neck: Musculoskeletal ROM normal neck. (-) JVD, (-) Stridor, (-) Tracheal deviation Cardio: Rhythm regular, rate normal, Heart sounds normal; Intact distal pulses; The pedal pulses are 2+ and symmetric. Radial pulses are 2+ and symmetric. (-) Murmur Pulmonary/Chest wall: Effort normal. (-) Respiratory distress, (-) Wheezes, (-) Rales Abd: Soft, (-) Tenderness, (-) Distension, (-) Guarding, (-) Rebound Musculoskeletal: (-) Edema Lymph: (-) Cervical adenopathy Neuro: Alert, Oriented x3 Psych: Mood and affect Normal MENTAL STATUS EXAMINATION ON ADMISSION: Appearance: Patient appear stated, age, overweight, making poor and intermittent short eye contact, casually dressed, very short hair, wearing spectacles. Behavior: cooperative Gait: normal Abnormal motor activity: none Speech: normal tone and volume, normal rate and rhythm Mood:depressed Affect: depressed, crying spells through out interview Thought process: coherent Thought Content: Suicidal/Homicidal ideation: passive si, no intent or plan Delusions: none Obsessions: none Phobia: none Perceptual disturbance: none Attention: fair Orientation: fair Concentration: fair Memory: fair Insight: fair Judgment: fair Impulse control: fair DIAGNOSIS ON ADMISSION: Major Depressive Disorder Prov: Bipolar Disorder unspecified DIAGNOSIS ON DISCHARGE: Major Depressive Disorder Objective - Appearance Appearance: Healthy Appearing, Obese Dysmorphic Features: Yes Hygiene: Normal Grooming: Fairly Well Kept - Behavior Psychomotor Activities: Normal Exhibits Abnormal Movement: Yes - Attitude and Relatedness Attitude and Relatedness: Cooperative Eye Contact: Fair - Speech Quality: Unpressured Latencies: Normal Quantity: Appropriate - Mood Patient's Decription of Mood: "Good" - Affect Observed Affect: Fair - Thought Process Patient's Thought Process: Coherent Thought Content: No Passive Wish, No Suicidal Planning, No Homicidal Ideation, No Paranoid Ideation - Sensorium Experiencing Hallucinations: No, Sensorium is Clear Type of Hallucinations: Visual: No, Auditory: No, Command: No - Level of Consciousness Orientation: Yes Intact, Yes Orientated to Time, Yes Orientated to Place, Yes Orientated to Person - Impulse Control Impulse Control: Intact - Insight and Judgement Insight and Judgement: Fair - Group Participation Particating in Group Activities: Yes - Medication Management Medication Management Adherence: Yes Treatment Course & Assessment Clinical Course & Impression: Patient is 27 y/o female with history of Major Depression and suicidal thoughts and plan. Patient currently admitted due to worsening of depression and suicidal thoughts with multiple random plans in context of overwhelming psychosocial stressor. Patient has also struggled with compliance and went off her antidepressant few months ago. Patient was a danger to self if discharged hence will be stabilized on inpatient unit with medication adjustments and therapy. Patient was admitted to [facility] on Q 15 min observation. Patient is full code. Patient is on voluntary admission status. Integrated patient into the milieu Social work consult for therapy and discharge planning. Patient gave informed consent to start Effexor XR 37.5 mg POQAM with plan to increase to 75 mg POQAM. Patient was started on Benadryl PRN for anxiety and sleep disturbance. Will continue to monitor and follow up for improvement and side effects. Patient during initial days of hospitalization was compliant with her medications, reported nausea as a side effects. Patient reports continued depression and suicidal ideation with isolation and secludedness in her symptoms. Patient was cooperative with staff but is showing limited involvement in groups. Patient behavior was in control and safe on all checks. Patient mood was dysphoric and worried about her current psychosocial stresses. was Patient also reported feeling body aches and back ache and requesting Ibuprofen as it helps vs Tylenol. Patient later reported continued depression and passive suicidal ideation, less crying spell, coming out of her room more than before. Patient sleeping has been better last night with Benadryl. Patient was showing limited involvement in groups due to her depression and was encouraged to attend more groups. Patient stepfather came to see patient on the unit and he is reportedly a therapist and [facility]. Patient's medications were increased to Effexor XR 75 mg PO QAM and Benadryl as needed for anxiety/sleep. Patient wasalso consuming Zofran for nausea but no reported vomiting episodes. Patient was bitterly complaining of dyspepsia and "mental fuzziness" from venlafaxine and claims that her stomach feels like "somebody is punching me in the guts." Patient denied active SI but does endorse feeling "apathetic" about life, "like I wouldn't mind it if a bus ran me over." Patient was hesitant about taking Effexor XR but was again educated about GI side effects and as patient reported no vomiting and gradual mprovement in symptoms. Patient reported improvement in depression and no suicidal ideation, no crying spell, was coming out of her room more and attending groups. . Patient reports that she had a GI appointment at the hospital and was planned to go for appointment upon discharge. Patient was cooperative with staff and following redirections. Patient was upset at her stepfather as he told other family members about her hospitalization. But later patient recuperated and was able to process her thinking positively and accepted his effort to help her depression. Patient mood was better and worked with addiction social worker to help with housing and financial situation with food stamp. Patient was reporting no suicidal or homicidal ideation. No psychotic symptoms of delusions or hallucinations. Patient also reported worry about ovarian cyst and was given findings of recent CT scan done a month ago which was suggestive of normal ovaries and that took out her major part of anxiety. Patient's medications were continued with Effexor XR 75 mg PO QAM and Benadryl as needed for anxiety/sleep. Patient did not require Zofran and was not reporting any nausea on the day of discharge. As patient was doing well, was not a danger to self and others and caring for self. Mood and behavior were in good control. Patient was discharged with plan to follow up outpatient treatment for therapy and medications. Merits Inpatient Hospitalization: No Clear for Discharge: Adequate Clinical Respons, Acceptable Safety Profile, Low Utility of Inpt Care Inpatient DSM-V Dx: F33.9 Discharge Planning - Discharge Planning Discharge Plan: Outpatient Follow Up Recommendations for Continuing Care: Medication Management, Psychotherapy Medications: Discharge Medications: Effexor XR 75 mg Po QAM and given #14 capsules Benadryl 50 mg PO QHS and given #14 capsules Discharge Planning: Prescriptions provided for discharge [x] Yes [] No Follow up care details as per social work arrangements. Patient response to discharge plan: [x] eager for discharge [] agreeable with discharge plan [] ambivalent about discharge [] disagrees with discharge today
== END 2018-01-30 12:30 | disposition home or self-care (01) | DRG 751 ==
LOC: ED 13:53 → BSU 19:00
PROVIDERS: ADMIT Psychiatry & Neurology Psychiatry; ATTEND Psychiatry & Neurology Psychiatry
DX: F33.9 Major depressive disorder, recurrent, unspecified (principal); R45.851 Suicidal ideations; Z68.43 Body mass index [BMI] 50.0-59.9, adult; E66.9 Obesity, unspecified; Z91.040 Latex allergy status; Z91.011 Allergy to milk products; Z91.010 Allergy to peanuts; Z81.8 Family history of other mental and behavioral disorders; Z81.1 Family history of alcohol abuse and dependence
CPT/HCPCS: 36415; 80053; 80061; 80307; 80320; 80329; 81003; 81015; 83036; 84443; 85025; 87086; 99222; 99231; 99232; 99238; 99284; A9270-GY; G0480

== ENCOUNTER 2019-02-05 13:10 | Emergency (ER) | payer OTHER ==
[2019-02-05] MEDS ORDERED: Lidocaine PATCH 5%* 1 PATCH TRANSDERM ONE (15:20)
[2019-02-05 15:47] VITALS: BP 137/101
[2019-02-05] MEDS ORDERED: Lidocaine Patch REMOVE* 1 NOTE MISC SCH (21:00)
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
== END 2019-02-05 15:46 | disposition home or self-care (01) ==
LOC: ED 13:10
DX: M54.9 Dorsalgia, unspecified (principal); R19.7 Diarrhea, unspecified; F17.200 Nicotine dependence, unspecified, uncomplicated; Z90.49 Acquired absence of other specified parts of digestive tract; Z91.040 Latex allergy status
CPT/HCPCS: 99282; A9270-GY